=== PATIENT | female | born 2000 | race Caucasian/White ===

== ENCOUNTER 2021-04-08 09:48 | Emergency (ER) | payer OTHER ==
[2021-04-08] MEDS ORDERED: Dexamethasone 10 MG/ML VIAL ONE (12:21)
== END 2021-04-08 12:32 | disposition home or self-care (01) ==
LOC: CSHERS 09:48
DX: J02.9 Acute pharyngitis, unspecified (principal)
CPT/HCPCS: 87081; 87430; 99283; J1100